=== PATIENT | female | born 1980 | race Caucasian/White ===

== ENCOUNTER 2019-03-22 19:11 | Emergency (ER) | payer BC, OTHER ==
[2019-03-22 19:34] VITALS: BP 128/82
--- NOTE | 2019-03-22 20:40 | UC ---
Skin Complaint HPI - HPI Summary HPI Summary: Patient presents to urgent care for evaluation of a wound on her right forearm. 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 Patient' s had to have them I&D in the past. Patient states this one has been present for about 10 days. Patient states when she squeezes it she gets a little bit of pus out. Patient reports some increased pain. No fevers or chills. No nausea vomiting. Tetanus is up-to-date. No analgesia taken today. Patient's medications reviewed this visit. Patient states she is not . RHD - History of Current Complaint Chief Complaint: UCSkin Time Seen by Provider: 03/22/19 20:26 Stated Complaint: ABCESS ON ARM W/MRSA PER PT Hx Obtained From: Patient, Medical Records Hx Last Menstrual Period: 03/22/19 Pain Intensity: 4 - Allergy/Home Medications Allergies/Adverse Reactions: Allergies Allergy/AdvReac Type Severity Reaction Status Date / Time environmental Allergy Congestion Uncoded 03/22/19 19:34 Home Medications: Home Medications Escitalopram Oxalate [Lexapro 10 mg] 1 tab PO DAILY 03/22/19 [History Confirmed 03/22/19] PMH/Surg Hx/FS Hx/Imm Hx Previously Healthy: Yes - MRSA infectins - Surgical History Surgical History: Yes Surgery Procedure, Year, and Place: , 2001. Dental surgeries, 2011 - Family History Known Family History: Positive: Non-Contributory - Social History Occupation: Employed Full-time Lives: With Family Alcohol Use: Weekly Substance Use Type: Marijuana Smoking Status (MU): Never Smoked Tobacco Review of Systems All Other Systems Reviewed And Are Negative: Yes Skin: Positive: Other - abscess right forearm Is Patient Immunocompromised?: No Physical Exam - Summary Physical Exam Summary: Vital Signs Reviewed: Yes A+Ox3, no distress Eyes: Conjunctiva Clear ENT: Hearing grossly normal neck: supple Respiratory: Positive: No respiratory distress, No accessory muscle use Cardiovascular: skin color reflect adequate perfusion 2+ radial Musculoskeletal Exam:+ AROM right shoulder + flex/ext elbow, wrist + pronate/ supinate with mild discomfort right prox forearm Neurological: Positive: Alert, ambulatory without difficulty + thumb up, a ok, finger cross, spread Psychological: Positive: Normal Response To Family Skin: Positive: no rash, no ecchymosisPt with 2-3cm area of edema, erythema and central fluctuance + TTP pointing center with scant discharge with gentle palpation + warm to touch Triage Information Reviewed: Yes Vital Signs: Initial Vital Signs Temp 97.4 F 03/22/19 19:29 Pulse 82 03/22/19 19:29 Resp 18 03/22/19 19:29 BP 128/82 03/22/19 19:29 Pulse Ox 99 03/22/19 19:29 Procedures - Procedure Summary Procedure Summary: verbal permission to treat time out completed with RN at bedside pt prepped in usual, sterile fashion incision with 11 blade - copious discharge, copious irrigation with 250ml sterile saline under pressure used forcep to open loculations 1/ packing placed pt tolerated well reviewed with pt wound care s/s infection return precautions - Incision and Drainage Right Upper Arm Dorsal Site: right prox forearmm dosrum Anesthesia: Local Instrument(s): Scalpel Packing: Gauze Course/Dx - Course Course Of Treatment: Patient presents to urgent care with abscess in her right forearm. Patient states she's got a history of current MRSA abscesses that she's had to have I& D. Patient's been putting a drawing salve on it that did not seem to help. Patient is not otherwise immunocompromised. Patient is right-hand dominant. Patient with distal CSM intact. Vital signs stable. We'll I&D the abscess packing is necessary. Place patient on Bactrim. Culture sent. Recommend patient return for packing removal and 36 hours. Motrin/Tylenol. Elevate. Patient given note for work. Patient comfortable in agreement with plan. Strict return precautions discussed. - Diagnoses Provider Diagnosis: Abscess Discharge - Sign-Out/Discharge Documenting (check all that apply): Patient Departure All imaging exams completed and their final reports reviewed: No Studies - Discharge Plan Condition: Stable Disposition: HOME Prescriptions: Sulfamethox/Trimethoprim DS* [Bactrim DS 800/160 TAB*] 1 tab PO BID #19 tab Patient Education Materials: Abscess (ED) Forms: *Work Release Referrals: Gonzalo Colby MD [Primary Care Provider] - Additional Instructions: Okay to alternate ibuprofen (Advil, Motrin) 600mg and Tylenol product every 3 hours for pain or fever. Take with food. Do NOT take for more than 4-5 days. Take antibiotics as prescribed until gone You had packing placed in your wound - this should be removed on Sunday - okay to return to urgent care or your primary care provider A culture was taken from your wound - if you need a different antibiotics, you will receive a call from a care steam oven operator If you develop increased reddness red streaking, fever, vomiting or any other concerns it is recommended you go to the emergency department for further evaluation and treatment - Billing Disposition and Condition Condition: STABLE Disposition: Home
[2019-03-22] MEDS ORDERED: Lidocaine 1%** 5 ML VIAL INJ ONE (20:47)
[2019-03-22] MEDS ORDERED: Acetaminophen TAB* 325 MG PO ONE (21:09)
[2019-03-22] MEDS ORDERED: Sulfamethox/Trimethoprim DS 800/160* TAB PO ONE (21:09)
== END 2019-03-22 21:30 | disposition home or self-care (01) ==
LOC: UCEAST 19:11
DX: L02.413 Cutaneous abscess of right upper limb (principal)
CPT/HCPCS: 10060; 87070; 87077; 87186; 87205; 87640; 87641; 99202; A9270-GY; G0463

== ENCOUNTER 2019-03-24 10:22 | Emergency (ER) | payer OTHER ==
[2019-03-24 11:08] VITALS: BP 117/80
--- NOTE | 2019-03-24 11:12 | UC ---
Skin Complaint HPI - HPI Summary HPI Summary: 38 yo female presents for recheck of her abscess. She had a right forearm abscess I&D on 03/22. She was placed on Bactrim for hx of MRSA. Culture did, indeed, grow out MRSA. The wound was packed. Pt has been changing the dressing daily. She states it is feeling much better. Redness and swelling significantly improved and pain has resolved. Denies fever or chills. - History of Current Complaint Chief Complaint: UCSkin Time Seen by Provider: 03/24/19 11:12 Stated Complaint: WOUND RECHECK Hx Obtained From: Patient Hx Last Menstrual Period: 03/24/19 Onset/Duration: Gradual Onset Onset Severity: Moderate Current Severity: Mild Pain Intensity: 2 Pain Scale Used: 0-10 Numeric - Allergy/Home Medications Allergies/Adverse Reactions: Allergies Allergy/AdvReac Type Severity Reaction Status Date / Time environmental Allergy Congestion Uncoded 03/24/19 11:05 PMH/Surg Hx/FS Hx/Imm Hx Endocrine History: Diabetes Psychological History: Anxiety, Depression - Surgical History Surgical History: Yes Surgery Procedure, Year, and Place: , 2001. Dental surgeries, 2011 - Family History Known Family History: Positive: Non-Contributory - Social History Lives: With Family Alcohol Use: Weekly Substance Use Type: Marijuana Smoking Status (MU): Never Smoked Tobacco Review of Systems All Other Systems Reviewed And Are Negative: Yes Constitutional: Positive: Negative Skin: Positive: Other - Abscess right arm Respiratory: Positive: Negative Cardiovascular: Positive: Negative Musculoskeletal: Positive: Negative Neurological: Positive: Negative Psychological: Positive: Negative Physical Exam - Summary Physical Exam Summary: GENERAL: NAD. WDWN. No pain distress. SKIN: RIGHT forearm: Abscess post I&D at proximal dorsal forearm. 6mm linear incision at central part of approx 2.5cm abscess. Packing in place. No surrounding TTP, edema, erythema. No active drainage. No streaking. CHEST: No accessory muscle use. Breathing comfortably and in no distress. CV: Pulses intact. Cap refill <2seconds MSK: Right UE: FROM at right hand, wrist, and all fingers NEURO: Alert. PSYCH: Age appropriate behavior. Triage Information Reviewed: Yes Vital Signs: Initial Vital Signs Temp 97.8 F 03/24/19 11:03 Pulse 73 03/24/19 11:03 Resp 18 03/24/19 11:03 BP 117/80 07/01/19 11:03 Pulse Ox 98 03/24/19 11:03 Vital Signs Reviewed: Yes Course/Dx - Course Course Of Treatment: Packing removed. No drainage or purulent material able to be expressed. Wound appears to be healing well. Advised to continue taking anbx and change the dressing daily until well healed. Telfa dressing placed today. - Diagnoses Provider Diagnosis: Abscess of right forearm Discharge - Sign-Out/Discharge Documenting (check all that apply): Patient Departure All imaging exams completed and their final reports reviewed: No Studies - Discharge Plan Condition: Stable Disposition: HOME Patient Education Materials: Acute Wound Care (ED), Abscess (ED) Referrals: Gonzalo Colby MD [Primary Care Provider] - Additional Instructions: If you develop a fever, shortness of breath, chest pain, new or worsening symptoms - please call your PCP or go to the ED immediately. 1) Change the dressing daily and keep taking your antibiotic as prescribed 2) The site appears to be healing very well, but if you develop pain, redness, swelling, or fevers - please be rechecked immediately - Billing Disposition and Condition Condition: STABLE Disposition: Home
== END 2019-03-24 11:20 | disposition home or self-care (01) ==
LOC: UCEAST 10:22
DX: Z51.89 Encounter for other specified aftercare (principal); L02.413 Cutaneous abscess of right upper limb; A49.02 Methicillin resistant Staphylococcus aureus infection, unspecified site; E11.9 Type 2 diabetes mellitus without complications
CPT/HCPCS: 99212; G0463

== ENCOUNTER 2019-09-06 16:30 | Emergency (ER) | payer OTHER ==
[2019-09-06 16:46] VITALS: BP 125/77
--- NOTE | 2019-09-06 17:05 | UC ---
Back Pain HPI - HPI Summary HPI Summary: patient reached for Vaughn shirt on bed and exp low back pain. no weakness or incontinence, over past 4 day she has been using ibuprofen and heat pack with little relief feels better in am after sleep and worse as day goes on or sits too long - History of Current Complaint Chief Complaint: UCBackPain Stated Complaint: back pain Time Seen by Provider: 09/06/19 16:36 Hx Obtained From: Patient Hx Last Menstrual Period: IUD Onset/Duration: Sudden Onset Timing: Constant Severity Initially: Moderate Severity Currently: Moderate Pain Intensity: 6 Back Pain: Is Diffuse - across lower back Character: Aching, Stiffness Aggravating Factor(s): Movement, Other - staying in one position too long Alleviating Factor(s): Position Associated Signs And Symptoms: Negative: Weakness, Numbness, Flank Pain, Bladder Incontinence, Bowel Incontinence Related History: Similar Episode Dx As - back strain - Allergies/Home Medications Allergies/Adverse Reactions: Allergies Allergy/AdvReac Type Severity Reaction Status Date / Time environmental Allergy Congestion Uncoded 09/06/19 16:37 PMH/Surg Hx/FS Hx/Imm Hx Previously Healthy: Yes Endocrine History: Diabetes Psychological History: Depression - Surgical History Surgical History: Yes Surgery Procedure, Year, and Place: , 2001. Dental surgeries, 2011 - Family History Known Family History: Positive: Non-Contributory - Social History Occupation: Student Lives: With Family Alcohol Use: Weekly Substance Use Type: Marijuana Smoking Status (MU): Never Smoked Tobacco Review of Systems All Other Systems Reviewed And Are Negative: Yes Constitutional: Positive: Negative Skin: Positive: Negative. Negative: Rash Respiratory: Positive: Negative Cardiovascular: Positive: Negative Neurovascular: Positive: Negative Musculoskeletal: Positive: Other: - low back pain Neurological: Positive: Negative. Negative: Weakness, Paresthesia Psychological: Positive: Negative Is Patient Immunocompromised?: No Physical Exam Triage Information Reviewed: Yes Appearance: Well-Appearing, No Pain Distress, Obese Vital Signs: Initial Vital Signs Temp 99.0 F 09/06/19 16:39 Pulse 70 09/06/19 16:39 Resp 16 09/06/19 16:39 BP 125/77 09/06/19 16:39 Pulse Ox 99 09/06/19 16:39 Vital Signs Reviewed: Yes Neck exam: Normal Neck: Positive: Supple Respiratory Exam: Normal Respiratory: Positive: Lungs clear Cardiovascular Exam: Normal Cardiovascular: Positive: RRR Musculoskeletal: Positive: Strength Intact, ROM Intact - c/o pain with flexion LS spine Neurological Exam: Normal Psychological Exam: Normal Skin Exam: Normal Skin: Negative: Rashes Back Pain Course/Dx - Differential Dx/Diagnosis Differential Diagnosis/HQI/PQRI: Cauda Equina Syndrome, Strain, Sprain Provider Diagnosis: Low back strain Discharge ED - Sign-Out/Discharge Documenting (check all that apply): Patient Departure All imaging exams completed and their final reports reviewed: No Studies - Discharge Plan Condition: Good Disposition: HOME Prescriptions: Cyclobenzaprine TAB* [Flexeril 10 MG TAB*] 10 mg PO TID PRN #15 tab PRN Reason: Spasms - Back Patient Education Materials: Low Back Strain (ED), Core Strengthening Exercises (GEN) Referrals: Gonzalo Colby MD [Primary Care Provider] - 3 Days (if no better) Additional Instructions: use heating pad and rest Ibuprofen 600-800mg every 6 hours as needed for pain use muscle relaxer as prescribed - it may make you drowsy report to ER if pain worsens or new symptoms occur - Billing Disposition and Condition Condition: GOOD Disposition: Home - Attestation Statements Provider Attestation: Per institutional requirements, I have reviewed the chart, however, I was not consulted specifically or made aware of this patient by the midlevel provider. I did not personally evaluate, interact with , or disposition this patient.
== END 2019-09-06 17:15 | disposition home or self-care (01) ==
LOC: UCEAST 16:30
DX: S39.012A Strain of muscle, fascia and tendon of lower back, initial encounter (principal); E11.9 Type 2 diabetes mellitus without complications; Z91.09 Other allergy status, other than to drugs and biological substances; X58.XXXA Exposure to other specified factors, initial encounter; Y92.9 Unspecified place or not applicable
CPT/HCPCS: 99212; G0463